=== PATIENT | female | born 1935 | race Caucasian/White ===

== ENCOUNTER 2018-01-05 11:02 | Day surgery (SDC) | payer OTHER, BC ==
[2018-01-05] MEDS ORDERED: fentaNYL 100 MCG/2 ML INJ IVP ONE (11:05)
[2018-01-05] MEDS ORDERED: MIDAZOLAM 2 MG/2 ML VIAL IVP ONE (11:05)
[2018-01-05] MEDS ORDERED: ATROPINE SULFATE 1 MG/10 ML SYR IVP ONE (11:05)
[2018-01-05] MEDS ORDERED: NS 500 ML IV ONE (11:05)
[2018-01-05] MEDS ORDERED: BENZOCAINE UNIT DOSE SPRAY HURRICAINE MM ONE (11:05)
[2018-01-05] MEDS ORDERED: ATROPINE SULFATE 1 MG/10 ML SYR ONE (11:07)
[2018-01-05] MEDS ORDERED: ENOXAPARIN 60 MG/0.6 ML SYR SC SCH (11:45)
[2018-01-05] MEDS ORDERED: ONDANSETRON 4 MG/2 ML VIAL IVP PRN (11:45)
[2018-01-05] MEDS ORDERED: fentaNYL 100 MCG/2 ML INJ IVP PRN (11:45)
[2018-01-05] MEDS ORDERED: NALOXONE HCL 0.4 MG/ML INJ IVP PRN (11:45)
[2018-01-05] MEDS ORDERED: ACETAMINOPHEN 500 MG TAB PO PRN (11:45)
[2018-01-05] MEDS ORDERED: ENOXAPARIN 60 MG/0.6 ML SYR SC ONE (11:45)
--- NOTE | 2018-01-05 11:45 | PDANEPAE ---
ANE Past Medical History - Cardiovascular History Hx Arrhythmias: Yes Hx Coronary Artery / Peripheral Vascular Disease: Yes - Pulmonary History Hx COPD: No Hx Asthma/Reactive Airway Disease: No Hx Oxygen in Use at Home: No Hx Sleep Apnea: No - Endocrine History Hx Diabetes: No Obesity: no ANE Review of Systems Review of Systems: ANE Patient History - Allergies Allergies/Adverse Reactions: tracer iodine Allergy (Uncoded 01/04/18 11:35) - Home Medications Home medications: home medication list seen and reviewed Home Medications: Levoxyl 88 mcg PO DAILY 01/05/18 [Last Taken Unknown] - NPO status NPO Status: no food or drink >8 hours - Anes Hx Anes Hx: no prior problems - Smoking Hx Smoking Status: Never smoked ANE Labs/Vital Signs - Vital Signs Height: 163 cm Weight: 55.8 kg ANE Physical Exam - Airway Neck exam: FROM Mallampati Score: Class 2 Mouth exam: normal dental/mouth exam - Pulmonary Pulmonary: no respiratory distress, no rales or rhonchi, clear to auscultation - Cardiovascular Cardiovascular: tachycardia - ASA Status ASA Status: III ANE Anesthesia Plan Anesthesia Plan: GA with mask
[2018-01-05] MEDS ORDERED: PROPOFOL 200 MG/20 ML VIAL ONE (11:46)
[2018-01-05 11:50] LABS: INR 0.98 (0.83-1.16); PROTIME(PATIENT) 13.2 SEC (12.0-15.0)
--- NOTE | 2018-01-05 12:01 | POSTANESTH ---
Post Anesthetic Evaluation Cardiovascular Status: Normal, Stable Respiratory Status: Normal, Stable, Similar to Pre-op Cond. Level of Consciousness/Mental Status: Can Participate in Eval, Mildly Sleepy, Arousable Pain Control: Adequate, Prn Tx Ordered Nausea/Vomiting Control: Adequate, Prn Tx Ordered Complications Possibly Related to Anesthesia: None Noted
--- NOTE | 2018-01-05 19:28 | CPEKG ---
Test Reason : OPEN Blood Pressure : / mmHG Vent. Rate : 082 BPM Atrial Rate : 083 BPM P-R Int : 223 ms QRS Dur : 088 ms QT Int : 400 ms P-R-T Axes : 077 107 011 degrees QTc Int : 468 ms Sinus rhythm Prolonged [place] interval Probable left atrial enlargement Right axis deviation Abnormal R-wave progression, early transition Premature ventricular complex Atrial pacer spike present Confirmed by Bailey Hagan ([id number] on 01/05/2018 7:28:03 PM Referred By: Confirmed By:Bailey Hagan
== END 2018-01-05 13:50 | disposition home or self-care (01) ==
LOC: FCATH 11:02
PROVIDERS: ATTEND Internal Medicine Interventional Cardiology
PROC: 5A2204Z Restoration of Cardiac Rhythm, Single (ICD-10-PCS; principal; 2018-01-05)
DX: I48.92 Unspecified atrial flutter (principal); I48.0 Paroxysmal atrial fibrillation; Z79.82 Long term (current) use of aspirin
CPT/HCPCS: J0461; J1650; J2704